=== PATIENT | male | born 2005 | race Hispanic/Latino ===

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

== ENCOUNTER → 2025-03-11 | Day surgery (SDC) | payer OTHER ==
[2025-03-03 13:53] LABS: BASOPHILS % 0.8 % (0.0-1.0); EOSINOPHILS % 1.4 % (0.0-6.0); LYMPHOCYTES % 31.4 % (18.0-39.1); MONOCYTES % 7.9 % (4.4-11.3); NEUTROPHILS % 58.2 % (38.7-80.0); RED CELL DISTRIBUTION WIDTH 13.1 % (11.7-14.4)
[2025-03-03 14:20] LABS: EST GLOMERULAR FILTRATION RATE 104.0 ML/MIN (>=60)
[~2025-03-11] MED LIST changes: -ALBUTEROL SULF 0.083% NEB SOLN 3 ML NEB ONE; +BUPIVACAINE 0.5%/EPI 30 ML SDV INJ ONE; -BUPIVACAINE HCL 0.5% INJ 30 ML VIAL INJ ONE; -CEFAZOLIN SODIUM 2 GM ONE; -EPHEDRINE SULFATE INJ 50 MG/ML VIAL ONE; -EPINEPHRINE HCL 1:1000 1ML 1 MG/ML AMP ONE; -FAMOTIDINE 20 MG/2 ML VIAL IV ONE; -HYDROCODONE/APAP 5MG-325MG TAB ONE; -HYDROMORPHONE 1MG/1ML INJ ONE; -LACTATED RINGER'S 1,000 ML ONE; -LIDOCAINE 1% W/EPINEPHRINE 20 ML VIAL ONE; -ROPIVACAINE 0.5% 5 MG/ML 30 ML SDV ONE
[2025-03-11] MEDS: CEFAZOLIN SODIUM 2 GM ONE (08:42)
[2025-03-11] MEDS: LACTATED RINGER'S 1,000 ML ONE (08:42)
[2025-03-11] MEDS: MEPERIDINE HCL INJ 25 MG/ML VIAL ONE (10:18)
[2025-03-11] MEDS: KETOROLAC TROMETHAMINE 30 MG/ML VIAL ONE (10:27)
[2025-03-11 11:05] VITALS: BP 141/75; PULSE 66; RESP 16; O2SAT 100
== END | disposition home or self-care (01) ==
LOC: OR 07:07
PROVIDERS: ATTEND Orthopaedic Surgery
DX: S83.231A Complex tear of medial meniscus, current injury, right knee, initial encounter (principal); S83.211A Bucket-handle tear of medial meniscus, current injury, right knee, initial encounter; M65.161 Other infective (teno)synovitis, right knee; M22.41 Chondromalacia patellae, right knee; M67.51 Plica syndrome, right knee; E66.9 Obesity, unspecified; X58.XXXA Exposure to other specified factors, initial encounter; Y93.89 Activity, other specified; Y99.8 Other external cause status; Z01.812 Encounter for preprocedural laboratory examination; Z79.1 Long term (current) use of non-steroidal anti-inflammatories (NSAID); Z79.82 Long term (current) use of aspirin; Z79.899 Other long term (current) drug therapy; Z68.38 Body mass index [BMI] 38.0-38.9, adult
CPT/HCPCS: 29875; 29999; 36415; 80053; 85025; C1713; J0131; J1100; J1885; J2003; J2175; J2250; J2405; J2704; J3010; J7121